=== PATIENT | female | born 1990 | race Caucasian/White ===

== ENCOUNTER 2022-08-18 13:47 | Emergency (ER) | payer OTHER ==
[~2022-08-18] VITALS: Ht 160 cm; Wt 95.0 kg
[2022-08-18 14:41] LABS: HEMATOCRIT 43.9 % (36.0-47.0); HEMOGLOBIN 14.7 g/dl (12.0-15.5); MEAN CORPUSCULAR HEMOGLOBIN 29.3 pg (27.0-33.0); MEAN CORPUSCULAR HGB CONC 33.5 g/dl (32.0-36.5); MEAN CORPUSCULAR VOLUME 87.5 fl (80.0-96.0); PLATELET COUNT, AUTOMATED 352 10^3/uL (150-450); RED BLOOD COUNT 5.02 10^6/uL (4.00-5.40); WHITE BLOOD COUNT 10.1 10^3/uL (4.0-10.0)
[2022-08-18 16:32] VITALS: BP 131/78
== END 2022-08-18 16:33 | disposition home or self-care (01) ==
LOC: M ED 13:47
DX: N93.9 Abnormal uterine and vaginal bleeding, unspecified (principal)

== ENCOUNTER → 2022-12-27 | Outpatient (CLI) | payer OTHER | LOC: M WHC 10:01 | PROVIDERS: ATTEND Advanced Practice Midwife | DX: Z34.91 Encounter for supervision of normal pregnancy, unspecified, first trimester (principal); Z3A.19 19 weeks gestation of pregnancy ==

== ENCOUNTER 2023-05-05 18:36 | Outpatient (CLI) | payer OTHER ==
[~2023-05-05] VITALS: Ht 160 cm; Wt 97.7 kg
[2023-05-05 18:55] VITALS: BP 145/88
[2023-05-05] MEDS ORDERED: ASPI81CH48 PO (19:01)
[2023-05-05] MEDS ORDERED: NOVO1INJ18 SC (19:01)
[2023-05-05] MEDS ORDERED: PRENTAB9 PO (19:01)
[2023-05-05 19:15] VITALS: BP 133/89
[2023-05-05 21:02] VITALS: BP 136/83
[2023-05-05 21:12] LABS: APPEARANCE, URINE CLEAR (CLEAR); BACTERIA, URINE AUTO 1+ (NEGATIVE); BILIRUBIN, URINE AUTO NEGATIVE (NEGATIVE); BLOOD, URINE BLOOD 1+ (NEGATIVE); COLOR, URINE YELLOW (YELLOW); GLUCOSE, URINE (UA) AUTO NEGATIVE (NEGATIVE); KETONE, URINE AUTO 1+ mg/dL (NEGATIVE); LEUKOCYTE ESTERASE, URINE AUTO 2+ (NEGATIVE); MUCUS, URINE SMALL (NEGATIVE); NITRITE, URINE AUTO NEGATIVE (NEGATIVE); PROTEIN, URINE AUTO NEGATIVE (NEGATIVE); RBC, URINE AUTO 17 /HPF (0-3); SPECIFIC GRAVITY URINE AUTO 1.009 (1.002-1.035); SQUAMOUS EPITHELIAL CELL UR AU 8 /HPF (0-6); UROBILINOGEN, URINE AUTO 0.2 mg/dL (0.0-2.0); WBC, URINE AUTO 8 /HPF (0-3)
[2023-05-05 21:29] LABS: HEMATOCRIT 37.5 % (36.0-47.0); HEMOGLOBIN 12.1 g/dl (12.0-15.5); MEAN CORPUSCULAR HEMOGLOBIN 27.3 pg (27.0-33.0); MEAN CORPUSCULAR HGB CONC 32.3 g/dl (32.0-36.5); MEAN CORPUSCULAR VOLUME 84.7 fl (80.0-96.0); PLATELET COUNT, AUTOMATED 339 10^3/uL (150-450); RED BLOOD COUNT 4.43 10^6/uL (4.00-5.40); WHITE BLOOD COUNT 11.4 10^3/uL (4.0-10.0)
[2023-05-05 21:31] LABS: TOTAL PROTEIN,RANDOM URINE 6.1 MG/DL (0.0-14.0)
[2023-05-05 21:36] LABS: CREATININE,RANDOM URINE 50.2 MG/DL
[2023-05-05 21:48] LABS: LDH LACTATE DEHYDROGENASE 162 U/L (120-246)
[2023-05-05 21:49] LABS: ALBUMIN 2.8 G/DL (3.2-5.2); ALKALINE PHOSPHATASE 147 U/L (46-116); ALT/SGPT < 9 U/L (7.0-40); AST/SGOT 12 U/L (<34); BILIRUBIN,TOTAL 0.3 MG/DL (0.3-1.2); BLOOD UREA NITROGEN 8 MG/DL (9-23); CARBON DIOXIDE LEVEL 20 MMOL/L (20-31); CHLORIDE LEVEL 106 MMOL/L (98-107); CREATININE FOR GFR 0.55 MG/DL (0.55-1.30); GLOMERULAR FILTRATION RATE > 60.0 (>60); GLUCOSE, FASTING 66 MG/DL (60-100); POTASSIUM SERUM 3.7 MMOL/L (3.5-5.1); SODIUM LEVEL 138 MMOL/L (136-145); TOTAL PROTEIN 6.2 G/DL (5.7-8.2)
[2023-05-05 21:52] LABS: URIC ACID 5.2 MG/DL (3.1-7.8)
[2023-05-10] MEDS ORDERED: IBUP-1022 PO (09:27)
[2023-05-10] MEDS ORDERED: ACET-683 PO (09:27)
== END 2023-05-05 21:15 | disposition home or self-care (01) ==
LOC: M LDO 18:36
PROVIDERS: ATTEND Obstetrics & Gynecology
DX: O47.03 False labor before 37 completed weeks of gestation, third trimester (principal); O99.213 Obesity complicating pregnancy, third trimester; E66.9 Obesity, unspecified; O24.414 Gestational diabetes mellitus in pregnancy, insulin controlled; Z87.51 Personal history of pre-term labor; Z88.7 Allergy status to serum and vaccine; Z3A.37 37 weeks gestation of pregnancy
CPT/HCPCS: 36415; 59025; 80053; 81001; 82570; 83615; 84156; 84550; 85027; G0463